=== PATIENT | female | born 1965 | race American Indian/Alaskan Native ===

== ENCOUNTER 2022-04-17 10:23 | Emergency (ER) | payer OTHER ==
[2022-04-17] MEDS ORDERED: ALBUTEROL 2.5 MG/3 ML NEBU IH ONE ×2 (11:08→14:08)
--- NOTE | 2022-04-17 11:42 | XRay Report ---
CHEST 2 VIEWS INDICATION / CLINICAL INFORMATION: sob. COMPARISON: None available. FINDINGS: SUPPORT DEVICES: None. HEART / MEDIASTINUM: No significant abnormality. LUNGS / PLEURA: The lungs are generally clear. No consolidation, pleural effusion or pneumothorax. ADDITIONAL FINDINGS: No significant additional findings. IMPRESSION: 1. No acute cardiopulmonary process identified. Signer Name: Philip Herr Jr, MD Signed: 04/17/2022 11:38 AM Workstation Name: [id number]
--- NOTE | 2022-04-17 12:09 | Emergency Department Report ---
Minor Respiratory - HPI Chief Complaint: Adult Asthma Stated Complaint: ASTHMA Time Seen by Provider: 04/17/22 11:07 Duration: 2 Days Pain Location: Chest Severity: mild Minor Respiratory: Yes Able to Tolerate Fluids, Yes Cough, Yes Shortness of Breath, Yes Fever, No Rhinorrhea, No Sore Throat, No Ear Pain, No Hemoptysis, No Chest Pain Other History: PT ARRIVING FROM HOME FOR SOB; 88%RA. RECEIVED DECADRON 10MG IM & ALBUTEROL 2.5MG EN ROUTE. BGL 126. HX ASTHMA & SLEEP APNEA; ALLERGY TO DOGS; 6 DOGS IN THE HOME. NON COMPLIANT WITH CPAP. ED Review of Systems ROS: Stated complaint: ASTHMA Other details as noted in HPI Comment: All other systems reviewed and negative ED Past Medical Hx - Past Medical History Previous Medical History?: Yes Hx Asthma: Yes - Family History Family history: no significant - Social History Substance Use Type: None - Medications Home Medications: Home Medications Medication Instructions Recorded Confirmed Last Taken Type ALBUTEROL NEB's [Proventil 0.083% 2.5 mg IH TID PRN #1 box 04/17/22 Unknown Rx NEBS] Albuterol Mdi (or & Nicu Only) 2 puff IH QID PRN #1 inhalation 04/17/22 Unknown Rx [ProAir HFA Inhaler] Azithromycin [Zithromax Z-ROMAN] 250 mg PO DAILY #6 tablet 04/17/22 Unknown Rx Cetirizine HCl [ZyrTEC] 10 mg PO DAILY #30 capsule 04/17/22 Unknown Rx Fluticasone [Flonase] 1 spray NS QDAY #1 bottle 04/17/22 Unknown Rx predniSONE [Deltasone] 20 mg PO DAILY #5 tablet 04/17/22 Unknown Rx Minor Respiratory Exam - Exam General: Vital signs noted. No distress. Alert and acting appropriately. HEENT: Yes Moist Mucous Membranes, No Pharyngeal Erythema, No Pharyngeal Exudates, No Rhinorrhea, No Conjuctival Injection, No Frontal Tenderness, No Maxillary Tenderness Ear: Neither TM Bulge, Neither TM Erythema, Neither EAC Pain, Neither EAC Discharge Neck: Yes Supple, No Adenopathy Lungs: Yes Good Air Exchange, Yes Wheezes, No Ronchi, No Stridor, No Cough, No Labored Respirations, No Retractions, No Use of Accessory Muscles, No Other Abnormal Lung Sounds Heart: Yes Regular, No Murmur Abdomen: Yes Normal Bowel Sounds, No Tenderness, No Peritoneal Signs Skin: No Rash, No Edema Neurologic: Alert and oriented, no deficits. Musculoskeletal: Unremarkable. ED Course Vital Signs 04/17/22 04/17/22 04/17/22 10:30 11:40 11:43 Temperature 98.3 F 98.7 F Pulse Rate 83 86 Pulse Rate [ 90 Bilateral] Respiratory 16 Rate Respiratory 18 Rate [Bilateral ] Blood Pressure 142/92 140/78 [Left] O2 Sat by Pulse 99 100 Oximetry ED Medical Decision Making - Radiology Data Radiology results: report reviewed, image reviewed [facility] - Medical Decision Making Vital Signs 04/17/22 04/17/22 04/17/22 10:30 11:40 11:43 Temperature 98.3 F 98.7 F Pulse Rate 83 86 Pulse Rate [ 90 Bilateral] Respiratory 16 Rate Respiratory 18 Rate [Bilateral ] Blood Pressure 142/92 140/78 [Left] O2 Sat by Pulse 99 100 Oximetry MEDICATED IN AMBULANCE PERSISTENT WHEEZING ON ARRIVAL TO ER DUONEB GIVEN INT PLACED SOLUMEDROL IV 125 MG GIVEN PT DID NOT IMPROVE WITH DECADON HX YUMIKO SATS 88% PER RN WITH TIME - STATS TO 100 PT TAKING PO AND NAD XRAY NEG DC HOME WITH DC PLAN OF CARE INCLUDING DIET, MEDS, ACTIVITY AND FOLLOW UP SHE VERBALIZES UNDERSTANDING OF PLAN OF CARE - Differential Diagnosis ASTHMA AE Critical care attestation.: If time is entered above; I have spent that time in minutes in the direct care of this critically ill patient, excluding procedure time. ED Disposition Clinical Impression: Asthma, acute, Nonadherence to medication, Obese, Hx of diabetes mellitus Disposition: 01 HOME / SELF CARE / HOMELESS Is pt being admited?: No Does the pt Need Aspirin: No Condition: Stable Instructions: Asthma, Adult, Asthma (ED) Additional Instructions: TAKE YOUR HOME BP MEDS DAILY INSTRUCTED CONTINUE MEDS ORDERED FOLLOW UP WITH PCP FOR ASTHMA REFERRAL BELOW STAY WELL HYDRATED MOTRIN OR TYLENOL FOR PAIN Prescriptions: predniSONE [Deltasone] 20 mg PO DAILY #5 tablet Fluticasone [Flonase] 1 spray NS QDAY #1 bottle Albuterol Mdi (or & Nicu Only) [ProAir HFA Inhaler] 2 puff IH QID PRN #1 inhalation PRN Reason: Shortness Of Breath ALBUTEROL NEB's [Proventil 0.083% NEBS] 2.5 mg IH TID PRN #1 box PRN Reason: Wheezing Azithromycin [Zithromax Z-ROMAN] 250 mg PO DAILY #6 tablet Cetirizine HCl [ZyrTEC] 10 mg PO DAILY #30 capsule Referrals: WILBERT STEVENSON MD [Primary Care Provider] - 3-5 Days Forms: Work/School Release Form(ED) Time of Disposition: 12:29
[2022-04-17] MEDS ORDERED: methylPREDNISolone Sod Succinate 125 MG/2 ML INJ IV ONE (12:33)
[2022-04-17] MEDS ORDERED: CETIRIZINE 10 MG TAB PO ONE (12:34)
[2022-04-17] MEDS ORDERED: LOSARTAN 25 MG TAB PO NR (13:00)
[2022-04-17] MEDS ORDERED: IPRATROPIUM 0.02% NEBU 2.5 ML IH ONE (14:08)
[2022-04-17 16:31] VITALS: BP 142/72
== END 2022-04-17 16:32 | disposition home or self-care (01) ==
LOC: ED 10:23
DX: J45.909 Unspecified asthma, uncomplicated (principal); E11.9 Type 2 diabetes mellitus without complications; E66.9 Obesity, unspecified; Z91.14 Patient's other noncompliance with medication regimen
CPT/HCPCS: 71046; 94640; 96374; 99284; J2930; 94644